=== PATIENT | male | born 1960 | race Caucasian/White ===

== ENCOUNTER 2016-12-17 05:20 | Day surgery (SDC) | payer OTHER ==
[~2016-12-17 05:20] MED LIST: HYDROCHLOROTHIA25 M1 PO; LIPITOR10 M1 PO; MAXZIDE 37.5 M1 EAC1 PO; PRINIVIL10 M1 PO
[2016-12-17 15:58] LABS: BASO % 0.2 % (0-2); HCT-HEMATOCRIT 36.7 % (36.0-53.5); HGB-HEMOGLOBIN 12.4 gm/dl (13.5-17.0); IMMATURE GRANULOCYTES ABSOLUTE 0.04 tho/cmm (0-0.03); IMMATURE GRANULOCYTES PERCENT 0.3 % (0-0.3); LYMPH ABSOLUTE COUNT 0.9 tho/cmm (0.8-4.5); MCH (MEAN CORPUSCULAR HGB) 27.6 pg (28.0-32.0); MCHC MEAN CORPUSCULAR HGB CONC 33.8 % (32.0-36.0); MCV (MEAN CELL VOLUME) 81.6 fl (82.0-96.0); MEAN PLATELET VOLUME 9.6 cmc (9.4-12.4); MONO % 4.6 % (0-12); MONOCYTE ABSOLUTE COUNT 0.6 tho/cmm (0.0-1.2); NEUTROPHIL ABSOLUTE COUNT 11.4 tho/cmm (1.6-8.0); NEUTROPHIL-AUTOMATED 11.4 tho/cmm (1.6-8.0); NEUTROPHILS % 87.9 % (40-80); PLATELET COUNT 208 tho/cmm (150-450); WHITE BLOOD COUNT 12.9 tho/cmm (4.0-10.0)
[2016-12-17 16:10] LABS: ANION GAP 12 mmol/L (0-20); BLOOD UREA NITROGEN 23 mg/dl (6-24); CALCIUM 8.2 mg/dl (8.5-10.5); CARBON DIOXIDE-VENOUS 27 mmol/L (22-32); CHLORIDE 103 mmol/l (96-110); CREATININE 1.61 mg/dl (0.60-1.30); GLUCOSE 130 mg/dL (70-110); POTASSIUM 3.9 mmol/L (3.7-5.1); SODIUM 138 mmol/L (135-145); eGFR VALUE FOR BLACK 55 mL/Min
[2016-12-17 20:17] LABS: HCT-HEMATOCRIT 38.2 % (36.0-53.5); MCV (MEAN CELL VOLUME) 82.7 fl (82.0-96.0)
[2016-12-18] MEDS ORDERED: TYLENOL WITH C1 EACH PO (09:16)
[2016-12-18] MEDS ORDERED: TYLENOL325 M2 PO (09:19)
[2016-12-18] MEDS ORDERED: ULTRAM50 M1 PO (09:25)
[2016-12-18] MEDS ORDERED: IBUPROFEN200 M2 PO (09:27)
[2016-12-18 11:24] LABS: ANION GAP 10 mmol/L (0-20); BLOOD UREA NITROGEN 18 mg/dl (6-24); CALCIUM 8.5 mg/dl (8.5-10.5); CARBON DIOXIDE-VENOUS 29 mmol/L (22-32); CHLORIDE 108 mmol/l (96-110); CREATININE 1.27 mg/dl (0.60-1.30); GLUCOSE 106 mg/dL (70-110); SODIUM 143 mmol/L (135-145); eGFR VALUE FOR BLACK 73 mL/Min
== END 2016-12-18 13:37 ==
LOC: SHSB 05:20 → ORW 07:27 → PACU 09:16 → SHSB 10:30 → CAR1 18:42
PROVIDERS: Hospitalist; Physician Assistant; Specialist
PROC: 0YU64JZ Supplement Left Inguinal Region with Synthetic Substitute, Percutaneous Endoscopic Approach (ICD-10-PCS; principal; 2016-12-17)
PROC: 8E0W4CZ Robotic Assisted Procedure of Trunk Region, Percutaneous Endoscopic Approach (ICD-10-PCS; 2016-12-17)
DX: K40.91 Unilateral inguinal hernia, without obstruction or gangrene, recurrent (principal); I10 Essential (primary) hypertension; E66.01 Morbid (severe) obesity due to excess calories; E78.00 Pure hypercholesterolemia, unspecified; R55 Syncope and collapse; Z68.37 Body mass index [BMI] 37.0-37.9, adult; Z79.899 Other long term (current) drug therapy; Z90.49 Acquired absence of other specified parts of digestive tract; Z98.890 Other specified postprocedural states
CPT/HCPCS: C1781; C9290; J0690; J2765; J3010; J7030